=== PATIENT | male | born 1955 | race Caucasian/White ===

== ENCOUNTER → 2018-06-28 11:16 | Outpatient (CLI) | payer BC, SELFPAY ==
[2018-06-28 11:22] LABS: Microscopic, Urine URINE MICROSCOPIC (MICROSCOPIC)
[2018-06-28 11:38] LABS: Appearance,Urine CLEAR (Clear); Bilirubin,Urine Negative (Negative); Blood, Urine Negative (Negative); Color,Urine YELLOW (Yellow); Glucose,Urine (UA) Negative (Negative); Ketones,Urine Negative (Negative); Leukocyte Esterase,Urine Negative (Negative); Nitrate,Urine Negative (Negative); Protein,Urine Negative (Negative); Specific Gravity, Urine 1.015 (1.005-1.030); Urobilinogen,Urine 0.2 EU/dl (0.2)
[2018-06-28 12:00] LABS: Bacteria,Urine Trace /lpf; WBC,Urine Occasional #/hpf (0-3)
[2018-06-28 12:09] LABS: Basophils % 0.7 % (0.1-2.0); Eosinophils # 0.2 K/mm3 (0.0-0.4); Eosinophils % 3.4 % (0.1-12.0); Hematocrit 46.8 % (42.0-52.0); Hemoglobin 15.3 g/dL (14.1-18.0); Lymphocytes # 2.5 K/mm3 (0.7-4.5); Lymphocytes % 44.4 % (10-50); Mean Corpuscular HGB Conc 32.7 g/dL (31.8-35.4); Mean Corpuscular Hemoglobin 28.4 pg (27.0-31.2); Mean Corpuscular Volume 86.9 fl (80-94); Mean Platelet Volume 8.1 fl (7.4-10.4); Monocytes # 0.3 K/mm3 (0.1-1.0); Monocytes % 5.6 % (1.7-9.3); Neutrophils # 2.6 K/mm3 (1.8-7.8); Neutrophils % 45.8 % (37.0-80.0); Platelet Count 196 K/mm3 (142-424); Red Blood Count 5.39 M/mm3 (4.60-6.20); Red Cell Distribution Width 13.7 % (11.5-17.5); White Blood Count 5.6 K/mm3 (4.8-10.8)
[2018-06-28 13:56] LABS: Anion Gap 11.6 mEq/L (5-15); Blood Urea Nitrogen 15 mg/dL (7-18); Calcium 9.3 mg/dL (8.5-10.1); Carbon Dioxide 30 mmol/L (21.0-32.0); Chloride 101 mmol/L (98-107); Creatinine,Serum 1.02 mg/dL (0.70-1.30); Estimated Glomerular Filt Rate 74 ml/min (>60); GFR (African American) 90 ML/MIN (>60); Glucose 97 mg/dL (74-106); Potassium 4.6 mmoL/L (3.5-5.1); Sodium 138 mmol/L (136-145)
== END ==
PROVIDERS: Visit Provider Surgery
DX: Z01.818 Encounter for other preprocedural examination (principal); K43.9 Ventral hernia without obstruction or gangrene
CPT/HCPCS: 36415; 80048; 81001; 85025; 93005

== ENCOUNTER → 2019-01-17 08:54 | Outpatient (POV) | payer BC, SELFPAY | PROVIDERS: Visit Provider Dermatology | DX: Z00.00 Encounter for general adult medical examination without abnormal findings (principal) ==

== ENCOUNTER → 2019-02-07 08:19 | Outpatient (POV) | payer BC, SELFPAY | PROVIDERS: Visit Provider Dermatology | DX: Z00.00 Encounter for general adult medical examination without abnormal findings (principal) ==

== ENCOUNTER → 2020-06-25 13:42 | Outpatient (POV) | payer BC, SELFPAY | PROVIDERS: Visit Provider Dermatology | DX: Z00.00 Encounter for general adult medical examination without abnormal findings (principal) ==

== ENCOUNTER 2020-08-25 19:43 | Emergency (ER) | payer BC, SELFPAY ==
[2020-08-25 20:02] VITALS: BP 169/92; PULSE 81; RESP 16; TEMP 37.1; O2SAT 96; BMI 27.2
--- NOTE | 2020-08-25 20:06 | XR_ITS ---
PROCEDURE: XR FOREARM RT 2V CLINICAL INDICATION: kicked by cow Pain COMPARISON: CR XR WRIST RT MIN 3V from 08/25/2020 FINDINGS: There is a displaced fracture involving the distal shaft of the radius 7 cm proximal to the distal articular surface. Fracture is non comminuted slightly oblique in nature. There is 9 mm radial displacement of the distal fracture fragment and 3 mm dorsal displacement of the distal fracture fragment. There is good alignment The joint spaces are well-preserved. No significant degenerative/arthritic changes. No erosive changes evident. Other findings:None. IMPRESSION: Mildly displaced distal radial fracture with good alignment Dictated by: Marcel Lema MD 08/26/2020 05:34 Marcel Lema MD in [place] 08/26/2020 05:34
[2020-08-25 20:29] VITALS: BP 169/92; PULSE 81; RESP 16; TEMP 37.1; O2SAT 96; BMI 27.1
--- NOTE | 2020-08-25 20:33 | HMH.EDUTC ---
[facility] [place]ression: Right radial fracture Qualifiers: Encounter type: initial encounter Radius location: shaft Fracture type: closed Fracture morphology: unspecified fracture morphology Qualified Code(s): S52.301A - Unspecified fracture of shaft of right radius, initial encounter for closed fracture Disposition: Home, Self-Care Condition on Discharge: Good Instructions: Forearm Fracture, DI for Forearm Fracture, How To Perform RICE (Rest, Ice, Compress, Elevate), Ibuprofen Additional Instructions: *RICE, Rest the extremity, Ice 15-20 minutes 3-4 times daily, Compress- wear the addy wrap as discussed as much as possible to help reduce swelling and pain, Elevate the extremity when at rest *Orthoglass splint and sling is for support and help control swelling, Be sure that is not to tight but not to loose either but do not remove *Elevate when resting *Ibuprofen 800mg every 8 hours as needed for pain an inflammation. If need something more can take Tylenol in between doses of Ibuprofen to help Immediately follow up with your family doctor for new or worsening of symptoms, or no noticeable improvement over the next 3-[address] Waite office tomorrow morning for appointment Return if needed Straight to ER if any life threatening symptoms Prescriptions: Amoxicillin/Potassium Clav [Augmentin 875-125 Tablet] 1 tab PO Q12H 5 Days #10 tab Transmission Status: Received by [id number] Ibuprofen [Ibuprofen 800mg Tablet] 800 mg PO TIDP PRN #20 tab PRN Reason: Moderate Pain Transmission Status: Received by [id number] Referrals: Germain Mancini MD [Primary Care Provider] - As needed Tristian Waite MD [Staff Physician] - As needed (Call office in the morning for appointment) Forms: Work/School Release Time of Disposition: 20:49 Medical Decision Making - Froylan Inquiry Pt receiving controlled substance: No Froylan was queried for this patient: No Vital Signs: 08/25/20 20:02 08/25/20 20:29 08/25/20 20:54 Temperature 98.8 F 98.8 F 98.8 F Temperature Source Oral Oral Pulse Rate 81 Pulse Rate [Left] 81 81 Respiratory Rate 16 16 16 Blood Pressure 169/92 H Blood Pressure [Left Arm] 169/92 H 169/92 H Blood Pressure Mean [Left Arm] 117 117 Blood Pressure Source [Left Arm] Automatic Cuff Automatic Cuff Blood Pressure Position [Left Arm] Sitting Sitting 02 Sat by Pulse Oximetry 96 96 Oxygen Delivery Method Room Air Room Air Orders (Tests/Meds): ED MEDICATIONS Discontinued Medications Generic Name Dose Route Start Last Admin Trade Name Rosalia PRN Reason Stop Dose Admin Amoxicillin/Clavulanate Potassium 1 each 08/25/20 21:17 Amoxicillin/Pot Clavulan 500mg Tablet PO 08/25/20 21:18 ONCE ONE Protocol ORDERS Category Date Time Status XR forearm RT 2V Stat Exams 08/25/20 20:06 Taken XR wrist RT min 3V Stat Exams 08/25/20 20:07 Taken - Radiology Data #1 Image(s): Forearm Image Reviewed: Yes I reviewed the patient's radiology image Fractured radial shaft #2 Image Reviewed: Yes I reviewed the patient's radiology image fractured Radial shaft - Physician Consults Physician Consulted: Ravindra Time: 20:38 Reason -: Orthopedic Eval/Care Comment/Response: Spoke with Dr Waite and he viewed xrays and advised to place in long arm splint, sling, RICE and call office tomorrow morning for appointment [facility] [place] - General Stated complaint: AO cow kicked R arm 1844 Time Seen by Provider: 08/25/20 20:33 Mode of Arrival: Ambulatory Source of Information: Patient Limitations: No Limitations Description of Symptoms (Recalled from Triage Doc. by RN): PATIENT C/O INJURY TO LEFT ARM AFTER GETTING KICKED BY A COW TODAY. OBVIOUS DEFORMITY NOTED HEENT Symptoms (Recalled from RN notes): No Resp Symptoms (Recalled from RN notes): No Skin Symptoms (Recalled from RN notes): No MS Symptoms (Recalled from RN notes): No Functional Status (Recalled f
[2020-08-25 20:54] VITALS: BP 169/92; PULSE 81; RESP 16; TEMP 37.1; O2SAT 96
== END 2020-08-25 21:12 | disposition home or self-care (01) ==
PROVIDERS: Emergency Provider Nurse Practitioner; PCP Internal Medicine Adolescent Medicine
DX: S52.501A Unspecified fracture of the lower end of right radius, initial encounter for closed fracture (principal); W55.22XA Struck by cow, initial encounter; Y92.71 Barn as the place of occurrence of the external cause; I10 Essential (primary) hypertension
CPT/HCPCS: 29125; 73090; 73110; 99202; G0463

== ENCOUNTER → 2020-08-30 10:22 | Outpatient (CLI) | payer BC, SELFPAY ==
--- NOTE | 2020-08-30 10:55 | ECG_ITS ---
APPROVED REPORT Exam: Resting ECG HR:70 bpm ECG Measurements Heart Rate 70 AXES LA 172 P 70 QRSd 70 QRS 91 QT 384 T 74 QTc 414 Conclusion Normal sinus rhythm Rightward axis Septal infarct, age undetermined Abnormal ECG Electronically signed by : Germain Mancini, 08/30/2020 18:10:33
[2020-08-30 11:02] LABS: Basophils # 0.1 K/mm3 (0-0.2); Basophils % 0.7 % (0.1-2.0); Eosinophils # 0.3 K/mm3 (0.0-0.4); Eosinophils % 5.1 % (0.1-12.0); Hematocrit 46.8 % (42.0-52.0); Hemoglobin 15.6 g/dL (14.1-18.0); Lymphocytes # 2.4 K/mm3 (0.7-4.5); Lymphocytes % 35.4 % (10-50); Mean Corpuscular HGB Conc 33.3 g/dL (31.8-35.4); Mean Corpuscular Hemoglobin 28.7 pg (27.0-31.2); Mean Corpuscular Volume 86.1 fl (80-94); Mean Platelet Volume 8.5 fl (7.4-10.4); Monocytes # 0.6 K/mm3 (0.1-1.0); Monocytes % 8.3 % (1.7-9.3); Neutrophils # 3.4 K/mm3 (1.8-7.8); Neutrophils % 50.6 % (37.0-80.0); Platelet Count 222 K/mm3 (142-424); Red Blood Count 5.43 M/mm3 (4.60-6.20); Red Cell Distribution Width 13.7 % (11.5-17.5); White Blood Count 6.8 K/mm3 (4.8-10.8)
[2020-08-30 11:07] LABS: Chloride 104 mmol/L (98-107); Potassium 4.6 mmoL/L (3.5-5.1); Sodium 138 mmol/L (136-145)
[2020-08-30 11:09] LABS: Blood Urea Nitrogen 16 mg/dl (9-20); Estimated Glomerular Filt Rate 85 ml/min (>60); GFR (African American) 103 ML/MIN (>60)
[2020-08-30 11:10] LABS: Alanine Aminotransferase 23 U/L (12-78); Albumin Level 4.4 g/dl (3.5-5.0); Albumin/Globulin Ratio 1.4 (1.1-1.8); Alkaline Phosphatase 53 U/L (38-126); Anion Gap 10.6 mEq/L (5-15); Aspartate Amino Transferase 41 U/L (17-59); Bilirubin,Total 0.6 mg/dl (0.2-1.3); Calcium 9.5 mg/dl (8.4-10.2); Carbon Dioxide 28 mmol/L (22.0-30.0); Globulin 3.1 g/dL (1.3-3.2); Glucose 83 mg/dl (74-100); Total Protein,Serum 7.5 g/dl (6.3-8.2)
== END ==
PROVIDERS: PCP Internal Medicine Adolescent Medicine; Visit Provider Orthopaedic Surgery
DX: Z01.818 Encounter for other preprocedural examination (principal); S52.91XA Unspecified fracture of right forearm, initial encounter for closed fracture
CPT/HCPCS: 36415; 80053; 85025; 93005

== ENCOUNTER → 2020-08-30 10:28 | Outpatient (CLI) | payer BC, SELFPAY | PROVIDERS: Visit Provider Orthopaedic Surgery | DX: Z01.818 Encounter for other preprocedural examination (principal) ==

== ENCOUNTER → 2020-08-31 11:51 | Outpatient (CLI) | payer BC, SELFPAY ==
[2020-08-31 12:27] LABS: Coronavirus 19 IgG Antibody Positive (Negative); Coronavirus 19 IgM Antibody Negative (Negative)
== END ==
PROVIDERS: Visit Provider Orthopaedic Surgery
DX: S52.91XA Unspecified fracture of right forearm, initial encounter for closed fracture (principal); Z01.818 Encounter for other preprocedural examination
CPT/HCPCS: 36415; 86328

== ENCOUNTER 2020-09-02 06:13 | Day surgery (SDC) | payer BC, SELFPAY ==
[2020-08-28 12:13] VITALS: BMI 27.2
[2020-09-02] VITALS (12 sets, daily range): BP systolic 128–165; BP diastolic 67–89; PULSE 68–96; RESP 14–18; TEMP 36.1–42.7; O2SAT 91–99
--- NOTE | 2020-09-02 09:00 | XR_ITS ---
PROCEDURE: XR FOREARM RT 2V CLINICAL INDICATION: ORIF RIGHT FOREARM COMPARISON: CR XR FOREARM RT 2V from 08/25/2020 FINDINGS: Fluoroscopic images of the right distal forearm demonstrate plate and screw fixation of the right distal 1/3 of the radius is noted. Satisfactory alignment. IMPRESSION: Internal fixation of the distal 1/3 of the right radius. Dictated by: Dayan Waite 09/02/2020 10:15 Dayan Waite in [place] 09/02/2020 10:15
--- NOTE | 2020-09-02 10:21 | HMH.OPNOTE ---
Date of procedure: 09/02/20 Pre-op Diagnosis:: Displaced, distal third fracture shaft of radius, right (Galeazzi fracture/dislocation, right forearm) Post-op Diagnosis:: Same Procedure performed:: Open reduction and internal fixation radial shaft fracture, right Surgeon:: Tristian Waite MD Journeyman Operator Assistant(s):: Bethany Salcedo HUC:: Other (Adam Ferrer) Anesthesia: LMA Estimated blood loss (mL): 10 Clinical Note:: Patient is a 65-year-old right-hand dominant male who sustained a displaced fracture shaft of the right distal radius with subluxation of the distal radial joint (Galeazzi fracture dislocation). Evaluation including x-rays of the right forearm showed a displaced fracture shaft of the right distal third radius. Patient also had a superficial abrasion over the volar aspect of the distal forearm. He had tenderness over the distal radial ulnar joint. Following a detailed discussion with the patient and his about the management options including both nonsurgical and surgical, patient elected to proceed with surgical remediation in the form of open reduction and internal fixation of the radial shaft fracture. Please refer to my office note for full details. Operative findings:: Displaced and unstable fracture shaft of the right distal third radius as noted on the preoperative x-rays. After fixation of the radial shaft fracture, the distal radioulnar joint is well reduced and noted to be stable. Bone quality is good. Operative note:: After appropriate workup, the patient was brought to the hospital for surgery. On the day of surgery, I met the patient in the preoperative area and again discussed the details of the procedure, risks and benefits, alternatives and the expected outcomes. The complications discussed include but are not limited to infection, bleeding, injury to nerves, tendons and blood vessels, incisional scar (cosmesis), DVT/PE, malunion, nonunion/delayed union, loss of position, re-fracture, wrist/finger stiffness, CRPS (complex regional pain syndrome- pain, sensory and temperature changes, swelling and stiffness), painful/prominent hardware, loss of fixation/hardware failure, incomplete relief of pain, incomplete return of function, posttraumatic arthritis and likely need for further surgery in future and also the risks of anesthesia including heart attack, stroke, and . I have discussed how there is a small but real possibility of loss of use of the arm, loss of the limb or loss of life itself. I have also explained how additional surgery may be required if there are any complications or the fracture fails to heal. We have also discussed the postoperative pain management, recovery and rehabilitation, immobilization required, the likely need for physical therapy, the possibility of stiffness, chronic pain and we've also discussed the option of nonsurgical treatment. Patient expressed a full understanding and wished to proceed with surgery as planned. The operative site/side was marked and initialed by me. Patient understood the risks, agreed to proceed with surgery and no guarantees or assurances were given or implied. Patient was brought to the operating room and placed supine on the table. The right upper extremity was placed over an arm table. All the bony prominences were well padded. A general anesthesia was administered by the network relay tester. A well-padded tourniquet cuff was applied over the right upper arm. The right upper extremity was prepped and draped in the usual sterile fashion. A preprocedure timeout was performed as per hospital protocol. Administration of prophylactic IV antibiotics [(2 g of IV Ancef)] was confirmed prior to starting the procedure. The skin incision was marked over the distal forearm anteriorly for the extended FCR volar approach to distal radius. Limb was exsanguinated with Esmarch bandage and tourniquet was inflated to 250 mmHg. Please see the nursing notes for the total tourniquet time. Skin incision wa
--- NOTE | 2020-09-02 13:29 | P.PN_ITS ---
[facility] Anesthesia Checklist - Structural Data Admitted From: Home Planned Operative Procedure/s: ORIF Right radial shaft Consent for Planned Operative Procedure(s) Verified: Yes Verified Documents: Surgical Consent - NPO Status Verified Time NPO: 00:00 - Additional verifications Anesthesia Reactions: No Hx Blood Transfusions: No Blood Transfusion Reaction: No - Airway Assessment C-Spine Mobility Assessed: Yes TMJ Mobility Assessed: Yes Dentition: Good Dentition - Neurological Assessment Level of Consciousness: Awake, Alert - Anesthesia Plan Anesthesia Risk discussed: Yes Anesthesia Plan: Verified ASA Class: II Anesthesia Type: General [facility] History Medical History: Reports:: Cancer, Hypertension Denies:: Diabetes Mellitus Type 1, Diabetes Mellitus Type 2, Internal Pacemaker, MRSA, Seizures *Have you ever received a pneumonia vaccine?: Yes *Have you received a flu vaccine this season?: Yes Other Medical History: Denies: Blood Transfusion Reaction Anesthesia experience/problems:: NAC Laterality Cases: Bilateral: Other Other Surgeries: Yes: Colonoscopy, Hernia Repair (x 2). No: Pacemaker Amputation: No Fractures: Yes - *Social History Last grade of school completed: High school graduate Smoking Status: Never smoker Alcohol Intake: never Substance Use Type: denies use *Occupational Status:: employed Housing: house Household Members: spouse *Travel in the last 8 weeks: None Family Hx:: No significant family history
--- NOTE | 2020-09-02 14:18 | P.PN_ITS ---
[facility] Anesthesia Record Part I Intake, IV Amount: 1,300 Estimated blood loss (mL): 2 Urine output (mL): 0 Blood Products used (#): none Blood Pressure: 142/78 SaO2: 93 Pulse Rate: 94 Respiratory Rate: 14 Temperature: 98.2 F Patient is:: Drowsy, Stable
--- NOTE | 2020-09-03 15:10 | P.PN_ITS ---
[facility] Anesthesia Record Part II Discharge Time: 10:13 Destination: home PACU nurse assessment reviewed?: Yes Patient Condition:: Good Anesthesia Complications:: None Swallowing reflex intact?: Yes Cyanosis?: No Blood Pressure: 158/89 Pulse Rate: 92 Temperature: 97.0 F Mental Status: Alert & Oriented Pain level:: 0 Nausea and/or vomitting:: None Intake, IV Amount: 1,300
[2020-09-03 15:12] VITALS: BP 158/89; PULSE 92; TEMP 36.1
== END 2020-09-02 11:15 | disposition home or self-care (01) ==
LOC: OR 06:15
PROVIDERS: PCP Internal Medicine Adolescent Medicine; Visit Provider Orthopaedic Surgery
PROC: (CPT 25515; principal; 2020-09-02 07:00)
DX: S52.371A Galeazzi's fracture of right radius, initial encounter for closed fracture (principal); W55.22XA Struck by cow, initial encounter; Y92.79 Other farm location as the place of occurrence of the external cause; I10 Essential (primary) hypertension
CPT/HCPCS: 25526; 73090; 76000; 96374; C1713; C1776; J2405; J3370

== ENCOUNTER → 2020-09-10 09:46 | Outpatient (CLI) | payer BC, SELFPAY ==
--- NOTE | 2020-09-10 09:49 | XR_ITS ---
PROCEDURE: XR WRIST RT MIN 3V CLINICAL INDICATION: ORIF rt wrist Follow-up ORIF COMPARISON: CR XR WRIST RT MIN 3V from 08/25/2020 FINDINGS: There is a cast in place. Dorsal bone plate is present at the distal shaft of the radius with good alignment the distal radial fracture. Fracture line is still visible. Other findings:None. IMPRESSION: Good alignment status post ORIF distal radial fracture Dictated by: Marcel Lema MD 09/10/2020 13:11 Marcel Lema MD in [place] 09/10/2020 13:11
== END ==
PROVIDERS: PCP Internal Medicine Adolescent Medicine; Visit Provider Orthopaedic Surgery
DX: S52.91XA Unspecified fracture of right forearm, initial encounter for closed fracture (principal)
CPT/HCPCS: 73110

== ENCOUNTER → 2020-10-01 08:36 | Outpatient (CLI) | payer BC, SELFPAY ==
--- NOTE | 2020-10-01 08:41 | XR_ITS ---
PROCEDURE: XR WRIST RT MIN 3V CLINICAL INDICATION: Rt wrist fracture COMPARISON: CR XR WRIST RT MIN 3V from 08/25/2020 CR XR WRIST RT MIN 3V from 09/10/2020 FINDINGS: Dorsal bone plate is present involving the distal shaft of the radius stabilizing the previously noted fracture. There is good alignment of the fracture fragments. No significant displacement. Fracture line is still visible with no obvious callus formation. The joint spaces are well-preserved. No significant degenerative/arthritic changes. No erosive changes evident. Other findings:None. IMPRESSION: Good alignment status post ORIF distal radial fracture Dictated by: Marcel Lema MD 10/01/2020 12:27 Marcel Lema MD in [place] 10/01/2020 12:27
== END ==
PROVIDERS: PCP Internal Medicine Adolescent Medicine; Visit Provider Orthopaedic Surgery
DX: S52.331D Displaced oblique fracture of shaft of right radius, subsequent encounter for closed fracture with routine healing (principal)
CPT/HCPCS: 73110

== ENCOUNTER 2020-11-06 14:00 | Outpatient (RCR) | payer BC, SELFPAY ==
--- NOTE | 2020-10-07 11:34 | HMH.OTOPEV ---
OT Inpatient Evaluation Rehab OT Outpatient Eval Start: 10/07/20 11:22 Freq: Status: Active Protocol: Document 10/07/20 11:22 [place] (Rec: 10/07/20 11:34 [id number] Electronically Signed By Cathryn Pickering OT 10/07/20 11:22 Outpatient Therapy Subjective History Subjective History Pt is a 65 year old male who reports to therapy for initial evaluation to right forearm/ wrist. Pt reports he was kicked by a cow on August 25 resulting in a right radial shaft fx. Pt required an ORIF of radial shaft on 09/02/20. Pt was in cast for ~4 weeks and was taken out of it ~1 week ago. Pt is right hand dominant. 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 Pt has no pain on arrival. Pt has some swelling within the hand. There is a 4 1/2 inch scare on posterior forearm that appears to be healing very well. Pt demonstrates with decreased AROM and strength at right elbow/wrist. Pt will continue to be seen in order to address deficits. STG R wrist Flex: 50 degrees Ext: [address]: 15 degrees UD: 15 degrees R elbow Ext: 0 degrees Pro: 90 degrees Sup: 75 degrees LTG R wrist Flex: 60 degrees Ext: [address]: 20 degrees UD: 20 degrees R elbow Sup: 80 degrees Chief Complaint Pain,Stiff,Weakness,Decreased Geographic Information System Analyst Strength Symptom Type Ache Symptoms Relieved By Rest/Positioning Symptoms Aggravated By Physical Activity,Lifting Prior Functional Limitations None Current Functional Limitations Reaching,Lifting,Housework, Dressing,Driving,Recreation
--- NOTE | 2020-11-06 15:01 | HMH.RHREAS ---
Rehab Reassessment Rehab OP Re-assessment Start: 11/06/20 14:23 Freq: Status: Active Protocol: Document 11/06/20 14:23 [place] (Rec: 11/06/20 15:01 [place] [id number]) Electronically Signed By Cathryn Pickering OT 11/06/20 14:23 Rehab Re-assessment Subjective Subjective I think it is some better. Objective Objective Notes Pt continues to be seen weekly in order to address right elbow and wrist deficits. Each session pt engages in AROM, strengthening, and AAROM exercises at wrist and elbow. Pt is passively ranged at right wrist and elbow in all directions at each joint. Pt is provided with modalities in order to provide decrease in pain/inflammation. Assessment Progress Assessment Progressing as Expected Assessment Notes Pt demonstrates great improvement at both the right wrist and elbow. Pt's AROM is WNL at right elbow; pt's right wrist is still slightly declined in extension. Pt's still weak at both joints, but strengthening exercises have been started. See the following AROM measurements Elbow: Flex: 140 degrees Ext: 0 degrees Pro: 90 degrees Sup: 90 degrees Wrist AROM Flex: 60 degrees Ext: [address]: 20 degrees UD: 20 degrees Patient goals met STG have been met Goals Not Met See henrique Revised Goals LTG Plan Plan Continue with OT plan of care at this time. Frequency of Therapy 1x's a week Duration of therapy 4 more weeks Time and Billing Re-Eval Time 15 Re-Eval Billing Units 1 PHYSICIAN CERTIFICATION: I certify the specified therapy services for Hector Thao are required, authorized, and reviewed every 30 days.
== END 2020-11-06 14:05 | disposition home or self-care (01) ==
LOC: OT 14:00
PROVIDERS: PCP Internal Medicine Adolescent Medicine; Visit Provider Orthopaedic Surgery
DX: S52.301D Unspecified fracture of shaft of right radius, subsequent encounter for closed fracture with routine healing (principal)
CPT/HCPCS: 97014; 97110; 97140; 97164; 97166; G0283

== ENCOUNTER → 2020-11-12 09:25 | Outpatient (CLI) | payer BC, SELFPAY ==
--- NOTE | 2020-11-12 09:29 | XR_ITS ---
PROCEDURE: XR FOREARM RT 2V CLINICAL INDICATION: sp ORIF RT distal 3rd shaft Follow-up fracture COMPARISON: CR XR FOREARM RT 2V from 08/25/2020 CR XR FOREARM RT 2V from 09/02/2020 FINDINGS: Dorsal bone plate is present at the distal 1/3 of the radius stabilizing a nondisplaced fracture with good alignment. The bone plate is intact. Fracture line is barely visible. The joint spaces are well-preserved. No significant degenerative/arthritic changes. No erosive changes evident. Other findings:None. IMPRESSION: Good alignment status post ORIF distal radial fracture Dictated by: Marecl Lema MD 11/12/2020 11:17 Marcel Lema MD in [place] 11/12/2020 11:17
== END ==
PROVIDERS: PCP Internal Medicine Adolescent Medicine; Visit Provider Orthopaedic Surgery
DX: S52.301D Unspecified fracture of shaft of right radius, subsequent encounter for closed fracture with routine healing (principal); Z09 Encounter for follow-up examination after completed treatment for conditions other than malignant neoplasm
CPT/HCPCS: 73090

== ENCOUNTER → 2020-12-31 10:11 | Outpatient (CLI) | payer BC, SELFPAY ==
--- NOTE | 2020-12-31 10:22 | XR_ITS ---
PROCEDURE: XR FOREARM RT 2V CLINICAL INDICATION: sp ORIF RT forearm COMPARISON: CR XR FOREARM RT 2V from 08/25/2020 CR XR FOREARM RT 2V from 09/02/2020 CR XR FOREARM RT 2V from 11/12/2020 FINDINGS: There is a bone plate present over the distal shaft of the right radius with good alignment of the radial fracture fragments. No significant displacement. Fracture line is not perceptible. IMPRESSION: Good alignment status post ORIF distal radial fracture Dictated by: Marcel Lema MD 12/31/2020 11:25 Marcel Lema MD in [place] 12/31/2020 11:25
== END ==
PROVIDERS: PCP Internal Medicine Adolescent Medicine; Visit Provider Orthopaedic Surgery
DX: S52.301D Unspecified fracture of shaft of right radius, subsequent encounter for closed fracture with routine healing (principal); Z09 Encounter for follow-up examination after completed treatment for conditions other than malignant neoplasm
CPT/HCPCS: 73090

== ENCOUNTER → 2023-02-17 13:29 | Outpatient (CLI) | payer MEDICARE, OTHER, SELFPAY ==
--- NOTE | 2023-02-17 13:42 | XR_ITS ---
FINAL REPORT CLINICAL HISTORY: foot pain FINDINGS: Left foot Three views were obtained. There is no acute fracture or dislocation. Small hallux valgus deformity is identified. There are mild degenerative changes of the 1st metatarsophalangeal. No soft tissue abnormality is identified. IMPRESSION: No acute process. Reviewed, Interpreted and Dictated by Jules Zabala III, MD Transcribed by Lori Ni Authenticated and [facility]
--- NOTE | 2023-02-17 13:42 | XR_ITS ---
FINAL REPORT CLINICAL HISTORY: foot pain FINDINGS: Right foot Three views were obtained. There is no acute fracture or dislocation. The joint spaces appear normal. No soft tissue abnormality is identified. IMPRESSION: No acute process. Reviewed, Interpreted and Dictated by Jules Zabala III, MD Transcribed by Lori Ni Authenticated and [facility]
== END ==
PROVIDERS: PCP Internal Medicine Adolescent Medicine; Visit Provider Podiatrist
DX: M79.671 Pain in right foot (principal); M79.672 Pain in left foot
CPT/HCPCS: 73630

== ENCOUNTER 2023-08-03 15:06 | Outpatient (POV) | payer MEDICARE, OTHER, SELFPAY | END 2023-08-03 23:59 | disposition home or self-care (01) | LOC: SC 15:07 | PROVIDERS: PCP Internal Medicine Adolescent Medicine; Visit Provider Dermatology | DX: Z00.00 Encounter for general adult medical examination without abnormal findings (principal) ==

== ENCOUNTER 2023-10-12 14:27 | Outpatient (POV) | payer MEDICARE, OTHER, SELFPAY | END 2023-10-12 23:59 | disposition home or self-care (01) | LOC: SC 14:28 | PROVIDERS: PCP Internal Medicine Adolescent Medicine; Visit Provider Dermatology | DX: Z00.00 Encounter for general adult medical examination without abnormal findings (principal) ==